=== PATIENT | male | born 1940 | race Caucasian/White ===

== ENCOUNTER 2017-08-09 10:40 | Outpatient (CLI) | payer MEDICARE, BC | END 2017-08-09 10:41 | disposition home or self-care (01) | LOC: BICULT 10:40 | PROVIDERS: ATTEND Internal Medicine Nephrology | DX: N18.3 Chronic kidney disease, stage 3 (moderate) (principal); N28.1 Cyst of kidney, acquired | CPT/HCPCS: 76770 ==

== ENCOUNTER 2018-04-02 10:35 | Outpatient (CLI) | payer MEDICARE, BC ==
--- NOTE | 2018-04-02 12:11 | BD ---
DEXA BONE DENSITY SCAN: Date: 04/02/18 COMPARISON: None available. HISTORY: Postmenopausal female underlying screening for osteoporosis. FINDINGS: Lumbar Spine BMD (g/cm2) L1 1.132 T-Score 0.5 L2 1.172 T-Score 0.7 L3 1.276 T-Score 1.6 L4 1.240 T-Score 1.4 L1-L4 1.213 T-Score 1.1 Femoral Neck 0.875 T-Score -0.4 Total Femur 1.212 T-Score 1.2 FRAX-WHO fracture risk assessment tool is not reported as all T-Scores are at or above -1.0. IMPRESSION: Normal lumbar spine bone mineral density examination. POS: [facility]
== END 2018-04-02 10:36 | disposition home or self-care (01) ==
LOC: BICMAMMO 10:35
PROVIDERS: ATTEND Family Medicine
DX: Z13.820 Encounter for screening for osteoporosis (principal); Z91.89 Other specified personal risk factors, not elsewhere classified
CPT/HCPCS: 77080

== ENCOUNTER 2018-09-16 11:52 | Emergency (ER) | payer MEDICARE, BC ==
[2018-09-16] MEDS ORDERED: Ketorolac Tromethamine 30 MG/ML VIAL ONE (12:09)
[2018-09-16] MEDS ORDERED: Methocarbamol 1 GM in Sodium Chloride 0.9% 100 ML IVPB SCH (12:15)
--- NOTE | 2018-09-16 12:35 | RAD ---
RIGHT HIP TWO VIEWS: HISTORY: Right hip pain. COMPARISON: None. FINDINGS: Two views of the right hip show no evidence of acute fracture or dislocation. No degenerative change s are seen. Multiple surgical clips are seen in the pelvis. IMPRESSION: No evidence of acute osseous abnormality. POS: C
[2018-09-16 14:09] LABS: Bilirubin Negative (Negative); Blood, Urine Trace (Negative); Clarity Clear (Clear); Glucose, Urine (Dipstick) Normal (Negative); Leukocyte Negative Leu/uL (Negative); Nitrite Negative (Negative); Protein, Urine (Dipstick) Negative (Neg-Trace); Squamous Epithelial 0-3 HPF (0-3); Urobilinogen Normal mg/dL (Less than 2); WBC/HPF 0-3 HPF (0-3)
[2018-09-16 14:11] LABS: Bacteria/HPF 1+ HPF (None Seen)
[2018-09-16] MEDS ORDERED: methylPREDNISolone Sod Succ/PF 125 MG/2 ML VIAL ONE (14:31)
[2018-09-16] MEDS ORDERED: Morphine 4 MG/ML VIAL ONE ×2 (14:31→15:39)
--- NOTE | 2018-09-16 17:53 | RAD ---
LUMBAR SPINE THREE VIEWS: 09/16/2018 HISTORY: Pain. FINDINGS: Numerous postoperative clips are noted in the pelvis. Lumbar pedicles appear intact on frontal imagi ng. There is multilevel lower thoracic spine disk space narrowing and anterior osteophyte formation. There is mild multilevel lower lumbar spine facet hypertrophy. There is also multilevel mild anter ior osteophyte formation within the lumbar spine. No anterolisthesis or retrolisthesis. No acute fr acture is evident. IMPRESSION: 1. Degenerative changes, as described above. 2. No acute fracture or evidence of dislocation. POS: [facility]
[2018-09-16 18:05] LABS: #Lymphocytes 1.2 thou/uL (1.20-3.40); #Monocytes 0.1 thou/uL (0.11-0.59); #Neutrophils 7.1 thou/uL (1.40-6.50); %Basophils 0.2 % (0.0-1.0); %Eosinophils 0.1 % (0.0-10.0); %Lymphocytes 14.5 % (21.0-51.0); %Monocytes 1.3 % (0.0-10.0); %Neutrophils 83.9 % (42.0-75.0); Hemoglobin 12.8 g/dL (14.0-18.0); Mean Corpuscular HGB CONC 29.8 g/dL (32.0-36.0); Mean Corpuscular Hemoglobin 25.4 pg (27.0-31.0); Mean Corpuscular Volume 85.1 fL (78.0-98.0); Mean Platelet Volume 7.5 fL (7.4-10.4); Platelet Count 176 thou/uL (130-400); RBC Distribution Width 13.1 % (11.5-14.5); Red Blood Cell (RBC) Count 5.05 mill/uL (4.70-6.10); White Blood Cell (WBC) Count 8.5 thou/uL (4.8-10.8)
[2018-09-16 18:18] LABS: ALT (SGPT) 9 U/L (8-55); AST (SGOT) 12 U/L (5-34); Albumin 3.9 g/dL (3.4-4.8); Alkaline Phosphatase 47 U/L (40-150); Anion Gap 14 mmol/L (10-20); BUN (Urea Nitrogen) 20 mg/dL (8.4-25.7); Bilirubin, Total 0.5 mg/dL (0.2-1.2); CRP (Inflammatory) Less than 0.50 mg/dL (= or < 0.5); Calc. Creatinine Clearance 0 mL/min (70-130); Calcium 9.1 mg/dL (7.8-10.44); Carbon Dioxide 20 mmol/L (23-31); Chloride 109 mmol/L (98-107); Estimated GFR-MDRD 57; Globulin 2.6 g/dL (2.4-3.5); Glucose 194 mg/dL (83-110); Potassium 4.3 mmol/L (3.5-5.1); Protein, Total 6.5 g/dL (5.8-8.1); Sodium 139 mmol/L (136-145)
[2018-09-16] MEDS ORDERED: Fentanyl 100 MCG/2 ML VIAL ONE (18:32)
== END 2018-09-16 18:55 | disposition home or self-care (01) ==
LOC: ERS 11:52
DX: M54.41 Lumbago with sciatica, right side (principal); E11.9 Type 2 diabetes mellitus without complications; K21.9 Gastro-esophageal reflux disease without esophagitis; E78.5 Hyperlipidemia, unspecified; I10 Essential (primary) hypertension; Z79.899 Other long term (current) drug therapy
CPT/HCPCS: 36415; 72100; 80053; 81003; 81015; 85025; 85652; 86140; 87086; 96361; 96365; 96375; 96376; J1885; J2270; J2800; J2930; J3010; J3490

== ENCOUNTER 2021-12-24 10:03 | Outpatient (CLI) | payer MEDICARE, OTHER | END 2021-12-24 10:04 | disposition home or self-care (01) | LOC: BICMAMMO 10:03 | PROVIDERS: ATTEND Family Medicine | DX: Z13.820 Encounter for screening for osteoporosis (principal); Z91.89 Other specified personal risk factors, not elsewhere classified | CPT/HCPCS: 77080 ==

== ENCOUNTER 2022-06-02 15:30 | Inpatient (IN) | payer MEDICARE, OTHER ==
[2022-06-13] MEDS ORDERED: Fentanyl 250 MCG/5 ML VIAL ONE (11:24)
[2022-06-13] MEDS ORDERED: fentaNYL 50 mcg/mL 1 mL Vial ONE (11:43)
[2022-06-13] MEDS ORDERED: Midazolam HCl 2 mg/2 ml Vial ONE (11:43)
[2022-06-13] MEDS ORDERED: Bacitracin Zinc Ointment 30 gm TUBE ONE (11:45)
[2022-06-13] MEDS ORDERED: Lidocaine 1% PF 5 ML VIAL ONE ×2 (11:58→12:29)
[2022-06-13] MEDS ORDERED: CEFAZOLIN 2 GM VIAL ONE (12:02)
[2022-06-13] MEDS ORDERED: Sodium Chloride 0.9% 100 ML ONE (12:02)
[2022-06-13] MEDS ORDERED: Ropivacaine 0.5% HCl/PF (150 MG/30 ML VIAL) ONE (12:08)
[2022-06-13] MEDS ORDERED: Lidocaine 1.5% w/Epi 1:200K 30 ML VIAL (Epid Use) ONE (12:29)
[2022-06-13] MEDS ORDERED: Ondansetron PF 4 MG/2 ML Vial ONE (12:29)
[2022-06-13] MEDS ORDERED: Dexamethasone 20 MG/5 ML VIAL ONE (12:29)
[2022-06-13] MEDS ORDERED: Vecuronium 10 MG VIAL ONE ×3 (12:29→14:04)
[2022-06-13] MEDS ORDERED: PROPOFOL 200 MG/20 ML VIAL ONE (12:29)
[2022-06-13] MEDS ORDERED: ePHEDrine Sulfate 50 MG/10 ML VIAL ONE (12:29)
[2022-06-13] MEDS ORDERED: Moisturizing Cream (Eucerin) 113 GM JAR TOP PRN (12:30)
[2022-06-13] MEDS ORDERED: diphenhydrAMINE 25 MG CAP PO PRN (12:30)
[2022-06-13] MEDS ORDERED: Naloxone HCl 0.4 mg/ml Vial IV PRN (12:30)
[2022-06-13] MEDS ORDERED: Promethazine HCl 25 MG SUPP PR PRN (12:30)
[2022-06-13] MEDS ORDERED: diphenhydrAMINE 50 MG/ML VIAL IM PRN (12:30)
[2022-06-13] MEDS ORDERED: Bupivacaine 0.25% 10 ML VIAL EPIDURAL PRN (12:30)
[2022-06-13] MEDS ORDERED: diphenhydrAMINE 50 MG/ML VIAL IVP PRN (12:30)
[2022-06-13] MEDS ORDERED: Zolpidem Tartrate 5 MG TAB PO PRN (12:30)
[2022-06-13] MEDS ORDERED: Naloxone HCl 0.4 mg/ml Vial IVP PRN (12:30)
[2022-06-13] MEDS ORDERED: HYDROcodone/Acetaminophen 5/325 mg Tablet PO PRN (12:30)
[2022-06-13] MEDS ORDERED: traMADol HCl 50 MG TAB PO PRN ×2 (12:30)
[2022-06-13] MEDS ORDERED: Promethazine HCl 25 MG/ML VIAL IM PRN (12:30)
[2022-06-13] MEDS ORDERED: SUGAMMADEX SODIUM 200 MG/2 ML VIAL ONE (14:04)
[2022-06-13] MEDS ORDERED: HYDROcodone/Acetaminophen 5/325 mg Tablet ONE ×2 (16:27)
[2022-06-13 17:37] LABS: Hemoglobin 11.3 g/dL (14.0-18.0); Mean Corpuscular Hemoglobin 28.3 pg (27.0-31.0); Mean Corpuscular Volume 88.5 fl (78.0-98.0); Platelet Count 243 10x3/uL (130-400); RBC Distribution Width 13.6 % (11.5-14.5); Red Blood Cell (RBC) Count 3.98 mill/uL (4.70-6.10); White Blood Cell (WBC) Count 12.4 10x3/uL (4.8-10.8)
[2022-06-13 17:55] LABS: Anion Gap 14 mmol/L (10-20); BUN (Urea Nitrogen) 18 mg/dL (8.4-25.7); Calc. Creatinine Clearance 73 mL/min (70-130); Calcium 8.3 mg/dL (7.8-10.44); Carbon Dioxide 19 mmol/L (23-31); Chloride 109 mmol/L (98-107); Estimated GFR 58; Glucose 151 mg/dL (83-110); Potassium 4.6 mmol/L (3.5-5.1); Sodium 137 mmol/L (136-145)
[2022-06-13] MEDS ORDERED: HumaLOG 300 UNITS/3 ML VIAL SC PRN (18:19)
[2022-06-13] MEDS ORDERED: Dextrose 50% Abboject 50 ML SYRINGE SLOW IVP PRN (18:19)
[2022-06-13] MEDS ORDERED: hydrALAZINE 20 MG/ML VIAL SLOW IVP PRN (18:19)
[2022-06-13] MEDS ORDERED: Mag-Al 1200 mg/1200 mg/30 ML UDCUP PO PRN (18:19)
[2022-06-13] MEDS ORDERED: Bisacodyl 10 MG SUPP PR PRN (18:19)
[2022-06-13] MEDS ORDERED: Dextrose 5% in Water 1,000 ML IV PRN (18:19)
[2022-06-13] MEDS ORDERED: Oxybutynin 5 MG TAB PO PRN (18:19)
[2022-06-13] MEDS: Metoprolol Tartrate 50 MG TAB PO SCH (22:02)
[2022-06-13] MEDS: HYDROcodone/Acetaminophen 5/325 mg Tablet PO PRN (22:03)
[2022-06-13] MEDS: Sodium Chloride 0.9% 1,000 ML IV SCH (22:05)
[2022-06-13] MEDS: CEFAZOLIN 1 GM in Sodium Chloride 0.9% 100 ML IVPB SCH (22:05)
[2022-06-13] MEDS: Docusate 100 MG CAP PO SCH (22:05)
[2022-06-13] MEDS: Rosuvastatin 20 MG TAB PO SCH (22:05)
[2022-06-14] MEDS: Fentanyl/Bupivacaine 100 ML EPIDURAL SCH ×2 (03:01→13:33)
[2022-06-14] MEDS: glipiZIDE 5 MG TAB PO SCH (06:12)
[2022-06-14] MEDS: CEFAZOLIN 1 GM in Sodium Chloride 0.9% 100 ML IVPB SCH ×2 (06:13→13:33)
[2022-06-14] MEDS: Sodium Chloride 0.9% 1,000 ML IV SCH (06:45)
[2022-06-14 07:49] LABS: #Lymphocytes 1.4 thou/uL (1.20-3.40); #Neutrophils 8.8 thou/uL (1.40-6.50); %Eosinophils 0.1 % (0.0-10.0); %Lymphocytes 12.5 % (21.0-51.0); %Monocytes 9.3 % (0.0-10.0); %Neutrophils 78.1 % (42.0-75.0); Hemoglobin 11.5 g/dL (14.0-18.0); Mean Corpuscular HGB CONC 32.4 g/dL (32.0-36.0); Mean Corpuscular Volume 89.6 fl (78.0-98.0); Mean Platelet Volume 7.1 fL (7.4-10.4); Platelet Count 258 10x3/uL (130-400); RBC Distribution Width 13.6 % (11.5-14.5); Red Blood Cell (RBC) Count 3.96 mill/uL (4.70-6.10); White Blood Cell (WBC) Count 11.2 10x3/uL (4.8-10.8)
[2022-06-14 07:59] LABS: Anion Gap 16 mmol/L (10-20); BUN (Urea Nitrogen) 22 mg/dL (8.4-25.7); Calc. Creatinine Clearance 60 mL/min (70-130); Calcium 8.2 mg/dL (7.8-10.44); Carbon Dioxide 18 mmol/L (23-31); Chloride 108 mmol/L (98-107); Estimated GFR 46; Glucose 182 mg/dL (83-110); Potassium 4.6 mmol/L (3.5-5.1); Sodium 137 mmol/L (136-145)
[2022-06-14] MEDS: Ezetimibe 10 MG TAB PO SCH (08:56)
[2022-06-14] MEDS: Metoprolol Tartrate 50 MG TAB PO SCH ×2 (08:56→21:33)
[2022-06-14] MEDS: Bicalutamide 50 MG TAB PO SCH (08:56)
[2022-06-14] MEDS: Docusate 100 MG CAP PO SCH ×2 (08:56→21:33)
[2022-06-14] MEDS: Rosuvastatin 20 MG TAB PO SCH (21:33)
[2022-06-14] MEDS: HYDROcodone/Acetaminophen 5/325 mg Tablet PO PRN (21:36)
[2022-06-15] MEDS: Fentanyl/Bupivacaine 100 ML EPIDURAL SCH ×3 (00:16→21:56)
[2022-06-15 05:55] LABS: #Lymphocytes 1.8 thou/uL (1.20-3.40); #Neutrophils 7.5 thou/uL (1.40-6.50); %Basophils 0.4 % (0.0-1.0); %Eosinophils 0.4 % (0.0-10.0); %Lymphocytes 17.4 % (21.0-51.0); %Neutrophils 71.9 % (42.0-75.0); Hemoglobin 9.7 g/dL (14.0-18.0); Mean Corpuscular HGB CONC 31.8 g/dL (32.0-36.0); Mean Corpuscular Hemoglobin 28.3 pg (27.0-31.0); Mean Platelet Volume 6.8 fL (7.4-10.4); Platelet Count 210 10x3/uL (130-400); RBC Distribution Width 13.5 % (11.5-14.5); Red Blood Cell (RBC) Count 3.43 mill/uL (4.70-6.10); White Blood Cell (WBC) Count 10.4 10x3/uL (4.8-10.8)
[2022-06-15 06:14] LABS: Anion Gap 11 mmol/L (10-20); BUN (Urea Nitrogen) 24 mg/dL (8.4-25.7); Calc. Creatinine Clearance 56 mL/min (70-130); Calcium 8.2 mg/dL (7.8-10.44); Carbon Dioxide 19 mmol/L (23-31); Chloride 110 mmol/L (98-107); Estimated GFR 42; Glucose 124 mg/dL (83-110); Potassium 4.4 mmol/L (3.5-5.1); Sodium 136 mmol/L (136-145)
[2022-06-15] MEDS: glipiZIDE 5 MG TAB PO SCH (06:24)
[2022-06-15] MEDS: Ezetimibe 10 MG TAB PO SCH (08:13)
[2022-06-15] MEDS: Bicalutamide 50 MG TAB PO SCH (08:13)
[2022-06-15] MEDS: Docusate 100 MG CAP PO SCH ×2 (08:14→21:13)
[2022-06-15] MEDS: Metoprolol Tartrate 50 MG TAB PO SCH ×2 (08:15→21:13)
[2022-06-15] MEDS: Rosuvastatin 20 MG TAB PO SCH (21:13)
[2022-06-16] MEDS: glipiZIDE 5 MG TAB PO SCH (06:22)
[2022-06-16 07:16] LABS: #Eosinphils 0.1 thou/uL (0.0-0.7); #Lymphocytes 1.5 thou/uL (1.20-3.40); #Monocytes 0.9 thou/uL (0.11-0.59); #Neutrophils 7.4 thou/uL (1.40-6.50); %Basophils 0.2 % (0.0-1.0); %Eosinophils 1.1 % (0.0-10.0); %Lymphocytes 15.5 % (21.0-51.0); %Monocytes 8.8 % (0.0-10.0); %Neutrophils 74.4 % (42.0-75.0); Hemoglobin 9.7 g/dL (14.0-18.0); Mean Corpuscular HGB CONC 32.3 g/dL (32.0-36.0); Mean Corpuscular Hemoglobin 28.9 pg (27.0-31.0); Mean Corpuscular Volume 89.6 fl (78.0-98.0); Mean Platelet Volume 6.9 fL (7.4-10.4); Platelet Count 228 10x3/uL (130-400); RBC Distribution Width 13.3 % (11.5-14.5); Red Blood Cell (RBC) Count 3.34 mill/uL (4.70-6.10); White Blood Cell (WBC) Count 9.9 10x3/uL (4.8-10.8)
[2022-06-16 07:29] LABS: Anion Gap 11 mmol/L (10-20); BUN (Urea Nitrogen) 21 mg/dL (8.4-25.7); Calc. Creatinine Clearance 63 mL/min (70-130); Calcium 8.7 mg/dL (7.8-10.44); Carbon Dioxide 21 mmol/L (23-31); Chloride 109 mmol/L (98-107); Estimated GFR 48; Glucose 123 mg/dL (83-110); Potassium 4.3 mmol/L (3.5-5.1); Sodium 137 mmol/L (136-145)
[2022-06-16] MEDS: Ezetimibe 10 MG TAB PO SCH (08:01)
[2022-06-16] MEDS: Metoprolol Tartrate 50 MG TAB PO SCH ×2 (08:01→21:46)
[2022-06-16] MEDS: Docusate 100 MG CAP PO SCH ×2 (08:01→21:46)
[2022-06-16] MEDS: Fentanyl/Bupivacaine 100 ML EPIDURAL SCH (09:07)
[2022-06-16] MEDS: Bicalutamide 50 MG TAB PO SCH (09:07)
[2022-06-16] MEDS ORDERED: HYDROcodone/Acetaminophen 7.5/325 mg Tablet PO PRN ×2 (10:51)
[2022-06-16] MEDS: Ondansetron PF 4 MG/2 ML Vial IVP PRN (20:46)
[2022-06-16] MEDS: Rosuvastatin 20 MG TAB PO SCH (21:46)
[2022-06-17] MEDS: Fentanyl/Bupivacaine 100 ML EPIDURAL SCH (02:47)
[2022-06-17] MEDS: Ondansetron PF 4 MG/2 ML Vial IVP PRN (04:15)
[2022-06-17] MEDS: glipiZIDE 5 MG TAB PO SCH (05:08)
[2022-06-17 07:23] LABS: #Monocytes 0.4 thou/uL (0.11-0.59); #Neutrophils 8.9 thou/uL (1.40-6.50); %Basophils 0.3 % (0.0-1.0); %Eosinophils 0.1 % (0.0-10.0); %Lymphocytes 9.4 % (21.0-51.0); %Monocytes 4.3 % (0.0-10.0); %Neutrophils 85.9 % (42.0-75.0); Hemoglobin 10.9 g/dL (14.0-18.0); Mean Corpuscular HGB CONC 32.2 g/dL (32.0-36.0); Mean Corpuscular Hemoglobin 28.3 pg (27.0-31.0); Mean Corpuscular Volume 87.9 fl (78.0-98.0); Mean Platelet Volume 8.7 fL (7.4-10.4); Platelet Count 227 10x3/uL (130-400); RBC Distribution Width 13.2 % (11.5-14.5); Red Blood Cell (RBC) Count 3.87 mill/uL (4.70-6.10); White Blood Cell (WBC) Count 10.3 10x3/uL (4.8-10.8)
[2022-06-17 07:51] LABS: Anion Gap 18 mmol/L (10-20); BUN (Urea Nitrogen) 21 mg/dL (8.4-25.7); Calc. Creatinine Clearance 73 mL/min (70-130); Calcium 9.1 mg/dL (7.8-10.44); Carbon Dioxide 18 mmol/L (23-31); Chloride 106 mmol/L (98-107); Estimated GFR 58; Glucose 155 mg/dL (83-110); Potassium 4.3 mmol/L (3.5-5.1); Sodium 138 mmol/L (136-145)
[2022-06-17] MEDS ORDERED: Docusate 100 MG CAP PO SCH (09:00)
[2022-06-17] MEDS: Metoprolol Tartrate 50 MG TAB PO SCH ×2 (10:15→19:17)
[2022-06-17] MEDS: Ezetimibe 10 MG TAB PO SCH (10:15)
[2022-06-17] MEDS: Bicalutamide 50 MG TAB PO SCH (10:15)
[2022-06-17] MEDS: Sodium Chloride 0.9% 1,000 ML IV SCH ×2 (10:24→19:25)
[2022-06-17 14:11] VITALS: BMI 37.9
[2022-06-17] MEDS: Docusate 100 MG CAP PO SCH (19:17)
[2022-06-17] MEDS: Rosuvastatin 20 MG TAB PO SCH (19:20)
[2022-06-18] MEDS: Fentanyl/Bupivacaine 100 ML EPIDURAL SCH ×2 (00:03→19:42)
[2022-06-18] MEDS: Sodium Chloride 0.9% 1,000 ML IV SCH ×2 (03:27→12:01)
[2022-06-18 06:36] LABS: #Eosinphils 0.1 thou/uL (0.0-0.7); #Lymphocytes 1.3 thou/uL (1.20-3.40); #Monocytes 0.8 thou/uL (0.11-0.59); #Neutrophils 4.8 thou/uL (1.40-6.50); %Basophils 0.3 % (0.0-1.0); %Eosinophils 1.4 % (0.0-10.0); %Lymphocytes 19.1 % (21.0-51.0); %Monocytes 11.4 % (0.0-10.0); %Neutrophils 67.9 % (42.0-75.0); Mean Corpuscular Volume 87.5 fl (78.0-98.0); Mean Platelet Volume 6.7 fL (7.4-10.4); Platelet Count 258 10x3/uL (130-400); RBC Distribution Width 13.2 % (11.5-14.5); Red Blood Cell (RBC) Count 2.86 mill/uL (4.70-6.10)
[2022-06-18] MEDS: glipiZIDE 5 MG TAB PO SCH (06:42)
[2022-06-18 06:53] LABS: Anion Gap 9 mmol/L (10-20); BUN (Urea Nitrogen) 22 mg/dL (8.4-25.7); Calc. Creatinine Clearance 89 mL/min (70-130); Calcium 6.8 mg/dL (7.8-10.44); Carbon Dioxide 17 mmol/L (23-31); Chloride 117 mmol/L (98-107); Estimated GFR 73; Glucose 102 mg/dL (83-110); Potassium 3.4 mmol/L (3.5-5.1); Sodium 140 mmol/L (136-145)
[2022-06-18] MEDS ORDERED: Milk Of Magnesia 30 ML UDCUP PO SCH (09:00)
[2022-06-18 09:14] LABS: ALT (SGPT) Less than 7 U/L (8-55); AST (SGOT) 12 U/L (5-34); Albumin 2.3 g/dL (3.4-4.8); Alkaline Phosphatase 35 U/L (40-110); Bilirubin, Direct 0.2 mg/dL (0.1-0.3); Bilirubin, Total 0.3 mg/dL (0.2-1.2); Magnesium 1.7 mg/dL (1.6-2.6); Protein, Total 4.1 g/dL (5.8-8.1)
[2022-06-18 09:17] LABS: Phosphorus 1.4 mg/dL (2.3-4.7)
[2022-06-18] MEDS ORDERED: Potassium Phosphate 30 MMOL in Sodium Chloride 0.9% 250 ML 250 ML IVPB SCH (10:00)
[2022-06-18] MEDS ORDERED: Magnesium Sulfate In Water 4 GM in Premix Bag 1 BAG IVPB SCH (10:00)
[2022-06-18] MEDS: Metoprolol Tartrate 50 MG TAB PO SCH ×2 (10:24→20:25)
[2022-06-18] MEDS: Ezetimibe 10 MG TAB PO SCH (10:24)
[2022-06-18] MEDS: Bicalutamide 50 MG TAB PO SCH (10:25)
[2022-06-18] MEDS: Senokot S 8.6-50 MG TAB PO SCH ×2 (10:29→20:25)
[2022-06-18] MEDS: Polyethylene Glycol 3350 17 GM Packet PO SCH (10:30)
[2022-06-18 14:25] LABS: Base Excess -11.6 mEq/L (-2.0 to +3.0); Calcium, Ionized (venous) 0.82 mmol/L (1.16-1.32); Chloride (VBG) 110 mmol/L (98-106); Hematocrit-VBG 23 % (42.0-52.0); Hemoglobin (Hb) 7.7 g/dL (12.6-17.4); Sodium 129.9 mmol/L (133-146); pH (venous) 7.307 (7.32-7.43)
[2022-06-18 14:31] LABS: Actual Bicarbonate (HCO3v) 13.5 mEq/L (22-28)
[2022-06-18] MEDS ORDERED: Sodium Bicarb 50 MEQ/50 ML VIAL IVP SCH ×2 (15:00)
[2022-06-18] MEDS ORDERED: Non-Formulary Item 1 EACH (Hydralazine Hcl [Hydralazine Hcl] 50 MG Tablet) PO SCH (15:00)
[2022-06-18] MEDS: hydrALAZINE 25 MG TAB PO SCH ×2 (15:37→20:24)
[2022-06-18 17:46] LABS: Actual Bicarbonate (HCO3v) 20.9 mEq/L (22-28); Base Excess -0.7 mEq/L (-2.0 to +3.0); Calcium, Ionized (venous) 0.95 mmol/L (1.16-1.32); Chloride (VBG) 108 mmol/L (98-106); Hematocrit-VBG 34 % (42.0-52.0); Hemoglobin (Hb) 11.5 g/dL (12.6-17.4); Potassium (VBG) 4.62 mmol/L (3.70-5.30); Sodium 137.6 mmol/L (133-146); pH (venous) 7.526 (7.32-7.43)
[2022-06-18 17:58] LABS: Albumin 3.3 g/dL (3.4-4.8)
[2022-06-18 17:59] LABS: Chloride 111 mmol/L (98-107); Potassium 4.7 mmol/L (3.5-5.1); Sodium 141 mmol/L (136-145)
[2022-06-18 18:01] LABS: Globulin 2.5 g/dL (2.4-3.5); Glucose 126 mg/dL (83-110)
[2022-06-18 18:02] LABS: Anion Gap 16 mmol/L (10-20); Bilirubin, Total 0.5 mg/dL (0.2-1.2); Carbon Dioxide 19 mmol/L (23-31)
[2022-06-18 18:04] LABS: Alkaline Phosphatase 50 U/L (40-110); Calc. Creatinine Clearance 67 mL/min (70-130); Estimated GFR 52
[2022-06-18 18:05] LABS: BUN (Urea Nitrogen) 26 mg/dL (8.4-25.7)
[2022-06-18 18:06] LABS: AST (SGOT) 14 U/L (5-34)
[2022-06-18 18:07] LABS: ALT (SGPT) Less than 7 U/L (8-55)
[2022-06-18 18:10] LABS: Lactic Acid 0.9 mmol/L (0.5-2.2)
[2022-06-18 18:19] LABS: Calcium 8.6 mg/dL (7.8-10.44); Protein, Total 5.8 g/dL (5.8-8.1)
[2022-06-18] MEDS: Lactated Ringer's 1,000 ML IV SCH (18:33)
[2022-06-18] MEDS: Rosuvastatin 20 MG TAB PO SCH (20:24)
[2022-06-18 22:57] LABS: Hemoglobin 11.1 g/dL (14.0-18.0); Mean Corpuscular HGB CONC 35.4 g/dL (32.0-36.0); Mean Corpuscular Volume 87.7 fl (78.0-98.0); Platelet Count 261 10x3/uL (130-400); RBC Distribution Width 13.3 % (11.5-14.5); Red Blood Cell (RBC) Count 3.56 mill/uL (4.70-6.10)
[2022-06-18 23:05] LABS: Actual Bicarbonate (HCO3v) 23.1 mEq/L (22-28); Base Excess -0.9 mEq/L (-2.0 to +3.0); Chloride (VBG) 108 mmol/L (98-106); Hematocrit-VBG 35 % (42.0-52.0); Hemoglobin (Hb) 11.8 g/dL (12.6-17.4); Potassium (VBG) 4.39 mmol/L (3.70-5.30); Sodium 139.7 mmol/L (133-146); pH (venous) 7.426 (7.32-7.43)
[2022-06-18 23:16] LABS: Anion Gap 16 mmol/L (10-20); BUN (Urea Nitrogen) 27 mg/dL (8.4-25.7); Calc. Creatinine Clearance 75 mL/min (70-130); Calcium 8.6 mg/dL (7.8-10.44); Carbon Dioxide 20 mmol/L (23-31); Chloride 110 mmol/L (98-107); Estimated GFR 60; Glucose 111 mg/dL (83-110); Potassium 4.7 mmol/L (3.5-5.1); Sodium 141 mmol/L (136-145)
[2022-06-19] MEDS: Lactated Ringer's 1,000 ML IV SCH ×4 (01:46→20:25)
[2022-06-19 06:25] LABS: Hemoglobin 9.5 g/dL (14.0-18.0); Mean Corpuscular HGB CONC 32.2 g/dL (32.0-36.0); Mean Corpuscular Hemoglobin 28.7 pg (27.0-31.0); Mean Platelet Volume 6.9 fL (7.4-10.4); Platelet Count 318 10x3/uL (130-400); RBC Distribution Width 13.5 % (11.5-14.5); Red Blood Cell (RBC) Count 3.31 mill/uL (4.70-6.10); White Blood Cell (WBC) Count 8.4 10x3/uL (4.8-10.8)
[2022-06-19 06:43] LABS: #Eosinphils 0.2 thou/uL (0.0-0.7); #Lymphocytes 1.9 thou/uL (1.20-3.40); #Monocytes 0.8 thou/uL (0.11-0.59); #Neutrophils 5.6 thou/uL (1.40-6.50); %Basophils 0.2 % (0.0-1.0); %Eosinophils 2.3 % (0.0-10.0); %Neutrophils 66.6 % (42.0-75.0); Anion Gap 12 mmol/L (10-20); BUN (Urea Nitrogen) 25 mg/dL (8.4-25.7); Burr Cells SLIGHT = 2-5 cells (100X) (0-1/hpf); Calc. Creatinine Clearance 78 mL/min (70-130); Calcium 8.4 mg/dL (7.8-10.44); Carbon Dioxide 20 mmol/L (23-31); Chloride 111 mmol/L (98-107); Elliptocytes SLIGHT = 2-5 cells (100X) (0-1/hpf); Estimated GFR 62; Glucose 96 mg/dL (83-110); MDiff Complete? YES; Magnesium 2.4 mg/dL (1.6-2.6); Phosphorus 2.3 mg/dL (2.3-4.7); Potassium 4.2 mmol/L (3.5-5.1); Sodium 139 mmol/L (136-145)
[2022-06-19 06:44] LABS: Iron 39 ug/dL (65-175); Iron Binding Capacity, Total 181 mcg/dL (261-462)
[2022-06-19 06:46] LABS: ALT (SGPT) 7 U/L (8-55); AST (SGOT) 12 U/L (5-34); Albumin 2.9 g/dL (3.4-4.8); Alkaline Phosphatase 46 U/L (40-110); Bilirubin, Direct 0.2 mg/dL (0.1-0.3); Bilirubin, Total 0.4 mg/dL (0.2-1.2); Protein, Total 5.3 g/dL (5.8-8.1)
[2022-06-19] MEDS: glipiZIDE 5 MG TAB PO SCH (08:10)
[2022-06-19] MEDS ORDERED: FOSINOPRIL SODIUM 20 MG PO SCH (09:00)
[2022-06-19] MEDS ORDERED: Lisinopril 20 MG TAB PO SCH (09:00)
[2022-06-19] MEDS: Polyethylene Glycol 3350 17 GM Packet PO SCH (09:54)
[2022-06-19] MEDS: Ezetimibe 10 MG TAB PO SCH (09:55)
[2022-06-19] MEDS: hydrALAZINE 25 MG TAB PO SCH ×3 (09:55→20:32)
[2022-06-19] MEDS: Metoprolol Tartrate 50 MG TAB PO SCH ×2 (09:55→20:30)
[2022-06-19] MEDS: Bicalutamide 50 MG TAB PO SCH (09:55)
[2022-06-19] MEDS: NIFEdipine XL 90 MG TAB PO SCH (09:56)
[2022-06-19] MEDS: Senokot S 8.6-50 MG TAB PO SCH ×2 (09:56→20:30)
[2022-06-19] MEDS ORDERED: EPOETIN ALFA-EPBX (ESRD) 4,000 UNIT/ML VIAL SC SCH (12:00)
[2022-06-19] MEDS ORDERED: EPOETIN ALFA-EPBX (ESRD) 2,000 UNIT/ML VIAL SC SCH (12:00)
[2022-06-19] MEDS ORDERED: Iron, Sodium Ferric Gluconate 250 MG in Sodium Chloride 0.9% 250 ML 250 ML IVPB SCH (12:00)
[2022-06-19] MEDS: Fentanyl/Bupivacaine 100 ML EPIDURAL SCH (16:37)
[2022-06-19] MEDS: Rosuvastatin 20 MG TAB PO SCH (20:33)
[2022-06-20 06:34] LABS: Anion Gap 12 mmol/L (10-20); BUN (Urea Nitrogen) 17 mg/dL (8.4-25.7); Calc. Creatinine Clearance 85 mL/min (70-130); Calcium 7.8 mg/dL (7.8-10.44); Carbon Dioxide 19 mmol/L (23-31); Chloride 109 mmol/L (98-107); Estimated GFR 69; Glucose 106 mg/dL (83-110); Phosphorus 2.3 mg/dL (2.3-4.7); Sodium 136 mmol/L (136-145)
[2022-06-20 06:36] LABS: Magnesium 2.1 mg/dL (1.6-2.6)
[2022-06-20] MEDS: Senokot S 8.6-50 MG TAB PO SCH ×2 (08:16→21:14)
[2022-06-20] MEDS: glipiZIDE 5 MG TAB PO SCH (08:16)
[2022-06-20] MEDS: Ezetimibe 10 MG TAB PO SCH (08:17)
[2022-06-20] MEDS: NIFEdipine XL 90 MG TAB PO SCH (08:17)
[2022-06-20] MEDS: Polyethylene Glycol 3350 17 GM Packet PO SCH (08:18)
[2022-06-20] MEDS: Bicalutamide 50 MG TAB PO SCH (09:13)
[2022-06-20] MEDS: hydrALAZINE 25 MG TAB PO SCH ×3 (09:56→21:12)
[2022-06-20] MEDS: Metoprolol Tartrate 50 MG TAB PO SCH ×2 (09:56→21:14)
[2022-06-20] MEDS: Lactated Ringer's 1,000 ML IV SCH (11:05)
[2022-06-20] MEDS: Rosuvastatin 20 MG TAB PO SCH (21:14)
[2022-06-21 07:25] LABS: Anion Gap 12 mmol/L (10-20); BUN (Urea Nitrogen) 15 mg/dL (8.4-25.7); Calc. Creatinine Clearance 74 mL/min (70-130); Calcium 8.4 mg/dL (7.8-10.44); Carbon Dioxide 24 mmol/L (23-31); Chloride 107 mmol/L (98-107); Estimated GFR 59; Glucose 139 mg/dL (83-110); Magnesium 1.9 mg/dL (1.6-2.6); Phosphorus 2.5 mg/dL (2.3-4.7); Sodium 139 mmol/L (136-145)
[2022-06-21 07:45] VITALS: TEMP 98.3
[2022-06-21] MEDS: glipiZIDE 5 MG TAB PO SCH (08:30)
[2022-06-21] MEDS: hydrALAZINE 25 MG TAB PO SCH (08:31)
[2022-06-21] MEDS: NIFEdipine XL 90 MG TAB PO SCH (08:31)
[2022-06-21] MEDS: Bicalutamide 50 MG TAB PO SCH (08:32)
[2022-06-21] MEDS: Ezetimibe 10 MG TAB PO SCH (08:32)
[2022-06-21] MEDS: Metoprolol Tartrate 50 MG TAB PO SCH (08:32)
[2022-06-21] MEDS: Polyethylene Glycol 3350 17 GM Packet PO SCH (08:33)
[2022-06-21] MEDS: Senokot S 8.6-50 MG TAB PO SCH (08:33)
[2022-06-21 12:07] VITALS: BP 91/51
== END 2022-06-21 13:15 | disposition home or self-care (01) | DRG 657 ==
LOC: SURG A 06-13 10:25
PROVIDERS: ADMIT Urology; ATTEND Urology
PROC: 0TB10ZZ Excision of Left Kidney, Open Approach (ICD-10-PCS; principal; 2022-06-13)
DX: C64.2 Malignant neoplasm of left kidney, except renal pelvis (principal); D62 Acute posthemorrhagic anemia; N17.9 Acute kidney failure, unspecified; E87.20 Acidosis, unspecified; K56.7 Ileus, unspecified; K91.89 Other postprocedural complications and disorders of digestive system; E83.39 Other disorders of phosphorus metabolism; E83.51 Hypocalcemia; Y83.6 Removal of other organ (partial) (total) as the cause of abnormal reaction of the patient, or of later complication, without mention of misadventure at the time of the procedure; R31.29 Other microscopic hematuria; E78.2 Mixed hyperlipidemia; K21.9 Gastro-esophageal reflux disease without esophagitis; E11.22 Type 2 diabetes mellitus with diabetic chronic kidney disease; M19.90 Unspecified osteoarthritis, unspecified site; G47.33 Obstructive sleep apnea (adult) (pediatric); R42 Dizziness and giddiness; N18.31 Chronic kidney disease, stage 3a; I12.9 Hypertensive chronic kidney disease with stage 1 through stage 4 chronic kidney disease, or unspecified chronic kidney disease; D63.1 Anemia in chronic kidney disease; E87.6 Hypokalemia; E86.9 Volume depletion, unspecified; T46.4X5A Adverse effect of angiotensin-converting-enzyme inhibitors, initial encounter; Z83.6 Family history of other diseases of the respiratory system; Z79.82 Long term (current) use of aspirin; Z79.899 Other long term (current) drug therapy; Z85.46 Personal history of malignant neoplasm of prostate; Z99.89 Dependence on other enabling machines and devices; Z90.79 Acquired absence of other genital organ(s); Z98.890 Other specified postprocedural states; Z98.49 Cataract extraction status, unspecified eye; Z83.3 Family history of diabetes mellitus; Z82.49 Family history of ischemic heart disease and other diseases of the circulatory system; Z81.1 Family history of alcohol abuse and dependence
CPT/HCPCS: 36415; 36416; 74018; 80048; 80076; 82306; 82728; 82805; 83540; 83550; 83605; 83735; 83970; 84100; 85025; 85027; 86850; 86900; 86901; 88307; 88341; 88342; 93005; 93010; C1713; C1776; C1889; J0690; J1100; J1650; J2001; J2250; J2405; J2704; J2795; J2916; J3010; J3475; J3490; J7050; J7120; Q5105

== ENCOUNTER 2024-12-26 11:42 | Outpatient (CLI) | payer MEDICARE, OTHER | END 2024-12-26 11:43 | disposition home or self-care (01) | LOC: BICMAMMO 11:42 | PROVIDERS: ATTEND Family Medicine | DX: M81.8 Other osteoporosis without current pathological fracture (principal) | CPT/HCPCS: 77080 ==